=== PATIENT | female | born 1990 | race American Indian/Alaskan Native ===

== ENCOUNTER 2016-07-03 14:12 | Emergency (ER) | payer SELFPAY ==
[2016-07-03 16:17] LABS: Bilirubin,Urine NEG (Negative); Blood,Urine SM (Negative); Ketones,Urine NEG (Negative); Leukocyte Esterase,Urine NEG (Negative); Mucus,Urine 3+ /HPF; Nitrite,Urine NEG (Negative); Protein,Urine <15 mg/dL mg/dL (Negative)
[2016-07-03] MEDS ORDERED: TYLENOL ONE (21:04)
[2016-07-03] MEDS ORDERED: TYLENOL PO ONE (21:05)
[2016-07-03] MEDS ORDERED: ZOFRAN ODT PO ONE (23:12)
[2016-07-03] MEDS ORDERED: ROCEPHIN IM ONE (23:12)
[2016-07-03] MEDS ORDERED: ZITHROMAX PO ONE (23:12)
[2016-07-03] MEDS ORDERED: MORPHINE IM ONE (23:12)
[2016-07-03] MEDS ORDERED: FLAGYL PO ONE (23:12)
[2016-07-03] MEDS ORDERED: XYLOCAINE 1% MPF 5 mL INFILTRATI ONE (23:12)
--- NOTE | 2016-07-03 23:21 | Emergency Department Report ---
HPI - General Chief Complaint: Urogenital-Female Time Seen by Provider: 07/03/16 22:23 - HPI HPI: The patient is a 26-year-old female who presents for evaluation of abdominal pain and chest pain. The patient reports suprapubic abdominal pain for the past 6 days, cramping in quality, moderate in severity, and is exacerbated with micturition. She states that she has also experienced some increased vaginal fluid drainage, but that her drainage has not been foul-smelling or abnormal in color or consistency. She has a secondary complaint of chest pain, aching in quality, moderate in severity, exacerbated with movement of the upper body. The patient denies fever, neck pain, parasthesias, dyspnea, cough, hemoptysis, palpitations, dizziness, syncope, unilateral leg swelling, calf muscle pain, vomiting, diarrhea, dysuria, hematuria, dyspareunia. ED Past Medical Hx - Past Medical History Previous Medical History?: Yes Additional medical history: anxiety / HERPES - Surgical History Past Surgical History?: No - Social History Smoking Status: Current Some Day Smoker Substance Use Type: None - Medications Home Medications: Home Medications Medication Instructions Recorded Confirmed Last Taken Type HYDROcodone/ACETAMINOPHEN [[place] 1 each PO Q6HR #20 tablet 10/04/13 Unknown Rx 5/325 Tablet] Acyclovir [Zovirax Tab] 800 mg PO 5XD #50 tab 01/24/15 Unknown Rx Ibuprofen [Motrin 800 MG tab] 800 mg PO Q8HR PRN #20 tablet 03/29/16 Unknown Rx Ibuprofen [Motrin] 800 mg PO Q8HR PRN #14 tablet 07/03/16 Unknown Rx metroNIDAZOLE [Flagyl] 500 mg PO Q12HR #14 tab 07/03/16 Unknown Rx traMADol [Ultram 50 MG tab] 50 mg PO Q6HR PRN #14 tablet 07/03/16 Unknown Rx ED Review of Systems ROS: Stated complaint: CHEST PAIN X 1WK/MIGRAINE X 1 WK/ KNOT ON CHEST Other details as noted in HPI Constitutional: denies: fever ENT: denies: throat or neck pain Respiratory: denies: cough, shortness of breath Cardiovascular: reports chest pain Endocrine: denies unexplained weight loss or gain Gastrointestinal: reports abdominal pain, nausea Genitourinary: denies: dysuria Musculoskeletal: denies: leg swelling Skin: denies: rash Neurological: denies: headache Hematological/Lymphatic: denies: easy bleeding or easy bruising Psych: denies sadness or hopelessness Physical Exam - Physical Exam Vital Signs: Vital Signs 07/03/16 07/03/16 07/03/16 14:46 22:21 22:49 Temperature 98.4 F 98.5 F Pulse Rate 68 67 Respiratory 18 20 Rate Blood Pressure 128/84 Blood Pressure 121/75 [Right] O2 Sat by Pulse 100 100 99 Oximetry Physical Exam: General: well-nourished, well-developed, no acute distress Head: Normocephalic, atraumatic Eyes: normal sclera ENT: Mucous membranes are pink and moist Neck: trachea midline, neck supple, No neck stiffness, no cervical adenopathy Respiratory: Breath sounds equal bilaterally, no wheezing, rales, or rhonchi Cardio: S1 and S2 present, no murmurs, rubs, gallops, capillary refill is brisk Abdomen: Normoactive bowel sounds, soft abdomen, suprapubic tenderness to palpation present, no rigidity, no guarding or rebound tenderness Musc: No pitting edema Skin: No rash Neuro: no facial drooping, normal speech Psych: Normal affect ED Course Vital Signs 07/03/16 07/03/16 07/03/16 14:46 22:21 22:49 Temperature 98.4 F 98.5 F Pulse Rate 68 67 Respiratory 18 20 Rate Blood Pressure 128/84 Blood Pressure 121/75 [Right] O2 Sat by Pulse 100 100 99 Oximetry ED Medical Decision Making - Medical Decision Making The patient was seen and examined by myself. The patient is placed on a panel monitor and continuous pulse ox. On initial evaluation, the patient was found to be in no distress. Evaluation orders are placed. EKG is negative for any findings suggestive of ACS. X-ray of the chest is unremarkable. The patient is given IM dose of morphine for pain. Urinalysis and preg tests are unremarkable. The patient declined pelvic exam and cultures but requests treatment for STDs. The patient is given treatment for GC, trich, and BV. The patient was reevaluated and reported that their symptoms were markedly improved. The patient is stable for discharge with outpatient follow-up. The patient is given follow-up and return instructions. The patient expressed understanding and agreed with the plan. The patient is discharged in stable condition. Critical care attestation.: If time is entered above; I have spent that time in minutes in the direct care of this critically ill patient, excluding procedure time. ED Disposition Clinical Impression: Abdominal pain, acute, periumbilical, Acute chest wall pain Disposition: DISCHARGED TO HOME OR SELFCARE Is pt being admited?: No Does the pt Need Aspirin: No Condition: Stable Instructions: Acute Abdominal Pain (ED), Chest Pain (ED) Referrals: PRIMARY CARE, [Primary Care Provider] - 3-5 Days Time of Disposition: 23:14
[2016-07-04 00:21] VITALS: BP 120/68
--- NOTE | 2016-07-04 09:09 | XRay Report ---
AP CHEST : 07/03/16 23:18 CLINICAL: Chest pain. COMPARISON:08/08/15 FINDINGS: Normal heart and pulmonary vessels. The lungs are normally expanded and clear. The bones and soft tissues are unremarkable. IMPRESSION: Normal chest.
== END 2016-07-04 00:30 | disposition home or self-care (01) ==
LOC: ED 14:12
DX: R10.33 Periumbilical pain (principal); R07.89 Other chest pain; F41.9 Anxiety disorder, unspecified; Z72.0 Tobacco use
CPT/HCPCS: 71010; 81001; 81025; 93005; 93010; 96372; 99284; J0696; J2270; Q0162